=== PATIENT | female | born 1960 | race African-American/Black ===

== ENCOUNTER 2016-07-27 12:43 | Inpatient (IN) | payer BC, OTHER ==
[2016-07-27] VITALS (430 sets, daily range): BP systolic 96–170; BP diastolic 61–105; PULSE 48–83; TEMP 97.7–98.5; O2SAT 93–100
[~2016-07-27] VITALS: Ht 170.2 cm; Wt 67.5 kg
[2016-07-27] MEDS ORDERED: ZESTRIL 20MG TA20 MG PO (16:00)
[2016-07-27] MEDS ORDERED: IRON325 M2 PO ×2 (16:01→16:02)
[2016-07-27] MEDS ORDERED: BIOTIN10000 MC1 PO (16:02)
[2016-07-27] MEDS ORDERED: MULTI VITAMINS1 TAB PO (16:03)
[2016-07-27] MEDS ORDERED: VITAMIN D1000 IU PO (16:04)
[2016-07-27 17:19] LABS: INR 1.1 (0.8-3.0); PROTHROMBIN TIME 11.8 SECONDS (9.7-12.8)
[2016-07-27 17:21] LABS: PARTIAL THROMBOPLASTIN TIME 51.8 SECONDS (26.0-37.0)
[2016-07-27 17:34] LABS: MAGNESIUM 2.1 mg/dL (1.6-2.3)
[2016-07-27 17:42] LABS: B-TYPE NATRIURETIC PEPTIDE 26 pg/mL (0-125)
[2016-07-27 17:51] LABS: CHOLESTEROL 187 mg/dL (120-200); HDL CHOLESTEROL 55 mg/dL; LDL CHOLESTEROL 126 mg/dL; TRIGLYCERIDE 29 mg/dL
[2016-07-27 18:23] LABS: TROPONIN-I < 0.012 ng/mL (0.000-0.034)
[2016-07-28] VITALS (719 sets, daily range): BP systolic 91–164; BP diastolic 59–102; PULSE 48–70; TEMP 97.6–98.3; O2SAT 95–100
[2016-07-28 06:56] LABS: MEAN CELL VOLUME 69 fl (80.0-100.0); MEAN CORPUSCULAR HGB CONC 32 g/dl (33.0-37.0); PLATELET COUNT 175 K/mm3 (130-400); RED BLOOD COUNT 5.31 M/mm3 (4.10-5.30); REDCELL DISTRIBUTION WIDTH-CV 15.7 % (11.5-14.5); WHITE BLOOD COUNT 4.8 K/mm3 (4.8-10.8)
[2016-07-28 06:57] LABS: INR 1.2 (0.8-3.0); PROTHROMBIN TIME 13.2 SECONDS (9.7-12.8)
[2016-07-28 07:02] LABS: HEMATOCRIT 36.5 % (37.0-47.0); HEMOGLOBIN 11.5 g/dl (12.5-16.0); MEAN CORPUSCULAR HEMOGLOBIN 22 pg (27.0-31.0)
[2016-07-28 07:10] LABS: ANION GAP 8 mmol/L (7-16); BLOOD UREA NITROGEN 10 mg/dL (7-17); CARBON DIOXIDE 27 mmol/L (22-30); CHLORIDE 105 mmol/L (98-107); CREATININE, serum 0.71 mg/dL (0.52-1.25); GLUCOSE 77 mg/dL (74-106); POTASSIUM 3.7 mmol/L (3.4-5.0); SODIUM 139 mmol/L (137-145)
[2016-07-28 07:19] LABS: TROPONIN-I < 0.012 ng/mL (0.000-0.034)
[2016-07-28] MEDS ORDERED: LIPITOR20 MG PO (14:27)
[2016-07-28] MEDS ORDERED: ASPIRIN E.C. 8181 MG PO (14:27)
[2016-07-28] MEDS ORDERED: CARDENE 20MG CA20 M1 PO (14:52)
== END 2016-07-28 16:10 | disposition home or self-care (01) | DRG 287 ==
LOC: IMCU 12:43
PROVIDERS: Internal Medicine Interventional Cardiology; Physician Assistant
PROC: 4A023N7 Measurement of Cardiac Sampling and Pressure, Left Heart, Percutaneous Approach (ICD-10-PCS; principal; 2016-07-28)
PROC: B2111ZZ Fluoroscopy of Multiple Coronary Arteries using Low Osmolar Contrast (ICD-10-PCS; 2016-07-28)
PROC: B2151ZZ Fluoroscopy of Left Heart using Low Osmolar Contrast (ICD-10-PCS; 2016-07-28)
DX: I20.0 Unstable angina (principal); I10 Essential (primary) hypertension; D64.9 Anemia, unspecified; E78.5 Hyperlipidemia, unspecified; Z82.49 Family history of ischemic heart disease and other diseases of the circulatory system; Z87.891 Personal history of nicotine dependence
CPT/HCPCS: 99223-AI; 99239; C1760; J0360; J1650; J2250; J2405; J3010; J7030; Q9967

== ENCOUNTER → 2019-01-18 | Outpatient (CLI) | payer BC, OTHER ==
[~2019-01-18] MED LIST: ASPIRIN E.C. 8181 MG PO; BIOTIN10000 MC1 PO; CARDENE 20MG CA20 M1 PO; IRON325 M2 PO; LIPITOR20 MG PO; MULTI VITAMINS1 TAB PO; VITAMIN D1000 IU PO; ZESTRIL 20MG TA20 MG PO
== END ==
LOC: COL.RAD 09:57
DX: R10.11 Right upper quadrant pain (principal); R25.2 Cramp and spasm
CPT/HCPCS: A9537; J2805

== ENCOUNTER → 2023-04-13 | Outpatient (CLI) | payer BC, OTHER | LOC: COL.RAD 10:59 | DX: R22.2 Localized swelling, mass and lump, trunk (principal) ==